=== PATIENT | male | born 1950 | race Caucasian/White ===

== ENCOUNTER 2017-11-13 11:42 | Emergency (ER) | payer OTHER, MEDICARE ==
[~2017-11-13] VITALS: Ht 160 cm; Wt 66.7 kg
[~2017-11-13 11:42] MED LIST: AMLODIPINE BESYL5 MG PO; ASPIR-TRIN325 MG PO; ECHINACEA100 MG PO; INDOCIN50 MG PO; KEFLEX500 MG PO; MICROZIDE12.5 MG PO; NIACIN500 MG PO; SYNTHROID0.025 MG PO
[2017-11-13] MEDS ORDERED: TROSPIUM CHLORI20 M1 PO (11:48)
[2017-11-13] MEDS ORDERED: BASAG SOL SQ (11:49)
[2017-11-13] MEDS ORDERED: TAMSULOSIN HCL0.4 MG PO (11:50)
[2017-11-13 12:26] LABS: BASO % 0.4 % (0.0-1.0); EOS # 0.1 10*3/uL (0.0-0.4); EOS % 1.6 % (1.0-4.0); HEMATOCRIT 41.6 % (42.0-52.0); HEMOGLOBIN 14.2 g/dl (14.0-18.0); LYMPH # 1.7 10*3/uL (1.3-4.4); LYMPH % 23.6 % (27.0-41.0); MEAN CELL VOLUME 88.5 fl (80.0-94.0); MEAN CORPUSCULAR HGB 30.2 pg (27.0-31.0); MEAN CORPUSCULAR HGB CONC 34.1 g/dl (33.0-37.0); MEAN PLATELET VOLUME 8.9 fl (9.6-12.3); MONO # 0.5 10*3/uL (0.1-1.0); MONO % 7.5 % (3.0-9.0); NEUT # 4.7 10*3/uL (2.3-7.9); NEUT % 66.8 % (47.0-73.0); PLATELET COUNT AUTOMATED 136 10*3/uL (130-400); RED CELL DISTRI WIDTH 12.7 % (0-14.5)
[2017-11-13 12:36] LABS: ACT PARTIAL THROMBO TIME 24.2 SECONDS (20.8-31.5)
[2017-11-13 12:41] LABS: ALBUMIN 3.5 gm/dl (3.1-4.5); ALKALINE PHOSPHATASE 73 U/L (45-117); BUN 16 mg/dl (7-24); CHLORIDE 102 mmol/L (98-107); CREATININE 0.87 mg/dL (0.70-1.30); LIPASE 101 U/L (73-393); POTASSIUM 3.7 mmol/L (3.5-5.1); SGOT/AST 18 IU/L (3-35); SGPT/ALT 28 U/L (12-78); SODIUM 136 mmol/L (136-145); TOTAL PROTEIN 6.9 gm/dL (6.4-8.2)
[2017-11-13] MEDS ORDERED: KEFLEX500 M1 PO (13:47)
[2017-11-13] MEDS ORDERED: SEPTDS PO (13:47)
== END 2017-11-13 13:51 | disposition home or self-care (01) ==
LOC: ED 11:42
PROVIDERS: Emergency Medicine
DX: L02.415 Cutaneous abscess of right lower limb (principal); L03.115 Cellulitis of right lower limb; F17.210 Nicotine dependence, cigarettes, uncomplicated; Z79.899 Other long term (current) drug therapy; Z79.82 Long term (current) use of aspirin; Z88.8 Allergy status to other drugs, medicaments and biological substances